=== PATIENT | female | born 1980 | race Asian ===

== ENCOUNTER 2024-01-12 03:30 | Emergency (ER) | payer OTHER ==
[~2024-01-12] VITALS: Ht 154.9 cm; Wt 70.5 kg
[2024-01-12 03:36] VITALS: BP 117/70; PULSE 78; RESP 17; TEMP 98.3
[2024-01-12] MEDS ORDERED: DOXY-354 PO (04:21)
[2024-01-12] MEDS ORDERED: IBUP-1554 PO (04:21)
[2024-01-12] MEDS ORDERED: ACET-2080 PO (04:21)
[2024-01-12] MEDS: DOXYCYCLINE HYCLATE 100 MG TABLET PO ONE (04:36)
[2024-01-12] MEDS: ACETAMINOPHEN/CODEINE 300-30 MG TABLET PO ONE (04:36)
== END 2024-01-12 04:25 | disposition home or self-care (01) ==
LOC: EMS 03:30
DX: L02.01 Cutaneous abscess of face (principal); L03.211 Cellulitis of face
CPT/HCPCS: 10060; 99283